=== PATIENT | female | born 1990 | race Caucasian/White ===

== ENCOUNTER 2017-06-23 15:10 | Emergency (ER) | payer OTHER ==
[2017-06-23 15:19] VITALS: TEMP 98.4; BMI 22.8
--- NOTE | 2017-06-23 15:21 | PDOC ---
Rapid Medical Evaluation Time Seen by Provider: 06/23/17 15:12 Medical Evaluation: Allergies Allergy/AdvReac Type Severity Reaction Status Date / Time No Known Allergies Allergy Verified 06/23/17 15:15 06/23/17 15:17 I have performed a brief in-person evaluation of this patient. The patient presents with a chief complaint of bright red blood per rectum since this am . Reports 2 episodes of blood in water of toilet when she went to urinate. States she noticed only bleeding with using the bathroom. Denies constipation or hemorrhoids. Denies anal intercourse Pertinent physical exam findings NAD lungs clear bilaterally heart s1s2 abdomen soft non tender I have ordered the following: urine hcg, urinalysis The patient will proceed to the ED for further evaluation. Discharge Disposition - Diagnosis Rectal bleeding - Discharge Dispostion Disposition: HOME Condition at time of disposition: Stable - Prescriptions Prescriptions: Hydrocortisone Acetate [Anusol Hc Suppository -] 25 mg RC DAILY #14 supp.rect - Referrals Referrals: Herman Stout MD [Staff Physician] - ON STAFF,NOT [Primary Care Provider] - - Patient Instructions Printed Discharge Instructions: DI for Rectal Bleeding Additional Instructions: 1. It is very important to followup on the xray results that you had that was done at a different facility. 2. Please call your doctor this week 3. Your labs do not show an anemia. If you have further rectal bleeding you may need to see a marine radio installer and servicer - Post Discharge Activity
[2017-06-23 16:32] LABS: URINE APPEARANCE SLCLOUDY; URINE BILIRUBIN NEGATIVE (NEGATIVE); URINE BLOOD NEGATIVE (NEGATIVE); URINE COLOR YELLOW; URINE GLUCOSE (UA) NEGATIVE (NEGATIVE); URINE KETONE NEGATIVE (NEGATIVE); URINE LEUK ESTERASE NEGATIVE (NEGATIVE); URINE NITRITE NEGATIVE (NEGATIVE); URINE PROTEIN NEGATIVE (NEGATIVE); URINE UROBILINOGEN NEGATIVE mg/dL (0.2-1.0)
[2017-06-23 16:46] LABS: HCG,QUALITATIVE URINE NEGATIVE
--- NOTE | 2017-06-23 16:50 | PDOC ---
History of Present Illness - General Chief Complaint: Bleeding from Anus Stated Complaint: RECTAL BLEEDING Time Seen by Provider: 06/23/17 15:12 History Source: Patient, Spouse Exam Limitations: Language Barrier - History of Present Illness Timing/Duration: 4-6 hours Severity: mild Modifying Factors: improves with: other (bowel mvmt) Associated Symptoms: reports: other (red blood in stool) Past History - Past Medical History Allergies/Adverse Reactions: Allergies Allergy/AdvReac Type Severity Reaction Status Date / Time No Known Allergies Allergy Verified 06/23/17 15:15 Home Medications: Ambulatory Orders NK [No Known Home Medication] 06/23/17 COPD: No Other medical history: DENIES. - Suicide/Smoking/Psychosocial Hx Smoking History: Never smoked Review of Systems - Review of Systems Able to Perform ROS?: Yes Is the patient limited Indonesian proficient: Yes Constitutional: No: Symptoms Reported, See HPI, Chills, Diaphoresis, Fever, Loss of Appetite, Malaise, Night Sweats, Weakness, Weight Stable, Unintentional Wgt. Loss, Unexplained wgt Loss, Other HEENTM: No: Symptoms Reported, See HPI, Eye Pain, Blurred Vision, Tearing, Recent change in vision, Double Vision, Cataracts, Ear Pain, Ocular Prothesis, Ear Discharge, Nose Pain, Nose Congestion, Tinnitus, Nose Bleeding, Hearing Loss , Throat Pain, Throat Swelling, Mouth Pain, Dental Problems, Difficulty Swallowing, Mouth Swelling, Other Respiratory: No: Symptoms reported, See HPI, Cough, Orthopnea, Shortness of Breath, SOB with Exertion, SOB at Rest, Stridor, Wheezing, Productive cough, Hemoptysis, Other Cardiac (ROS): No: Symptoms Reported, See HPI, Chest Pain, Edema, Irregular Heart Rate, Lightheadedness, Palpitations, Syncope, Chest Tightness, Other ABD/GI: Yes: Rectal Bleeding : No: Symptoms Reported, See HPI, Burning, Dysuria, Discharge, Frequency, Flank Pain, Hematuria, Incontinence, Pain, Urgency, Testicular Mass, Testicular Swelling, Lesions, Testicular Pain, Other Musculoskeletal: No: Symptoms Reported, See HPI, Back Pain, Gout, Joint Pain, Joint Swelling, Muscle Pain, Muscle Weakness, Neck Pain, Joint Stiffness, Other Integumentary: No: Symptoms Reported, See HPI, Bruising, Change in Color, Change in Hair/Nails, Dryness, Erythema, Flushing, Lesions, Lumps, Pallor, Pruritus, Rash, Sweating, Other Neurological: No: Symptoms reported, See HPI, Headache, Numbness, Paresthesia, Pre-Existing Deficit, Seizure, Tingling, Tremors, Weakness, Unsteady Gait, Ataxia, Dizziness, Other Endocrine: No: Symptoms Reported, See HPI, Excessive Sweating, Flushing, Intolerance to Cold, Intolerance to Heat, Increased Hunger, Increased Thirst, Increased Urine, Unexplained Weight Gain, Unexplained Weight Loss, Change in Weight, Other *Physical Exam - Vital Signs Last Vital Signs Temp Pulse Resp BP Pulse Ox 98.4 F 85 18 140/95 100 06/23/17 15:15 06/23/17 15:15 06/23/17 15:15 06/23/17 15:15 06/23/17 15:15 - Physical Exam General Appearance: Yes: Nourished, Appropriately Dressed HEENT: positive: Normal Voice Neck: positive: Supple Respiratory/Chest: positive: Lungs Clear Cardiovascular: positive: Regular Rhythm, Regular Rate Vascular Pulses: Carotid (R): 2+, Carotid (L): 2+ Gastrointestinal/Abdominal: positive: Normal Bowel Sounds, Flat Rectal Exam: positive: normal rectal tone, heme positive stool Extremity: positive: Normal Capillary Refill, Normal Range of Motion Integumentary: positive: Other (left forearm ppd _ induration, 1 cm ) Neurologic: positive: Fully Oriented, Alert ED Treatment Course - LABORATORY CBC & Chemistry Diagram: 06/23/17 17:04 06/23/17 17:04 - ADDITIONAL ORDERS Additional order review: Laboratory Results 06/23/17 15:40 Urine HCG, Qual Negative Medical Decision Making - Medical Decision Making 06/23/17 17:17 Incidenatally while examining the pt I found her recent ppd was positive she knows this and had a cxr earlier today =is following up with her PCP this week =pt given respiratory mask and kept in her room *DC/Admit/Observation/Transfer Diagnosis at time of Disposition: Rectal bleeding - Discharge Dispostion Disposition: HOME Condition at time of disposition: Stable - Referrals Referrals: ON STAFF,NOT [Primary Care Provider] - Herman Stout MD [Staff Physician] - - Patient Instructions Printed Discharge Instructions: DI for Rectal Bleeding Additional Instructions: 1. It is very important to followup on the xray results that you had that was done at a different facility. 2. Please call your doctor this week 3. Your labs do not show an anemia. If you have further rectal bleeding you may need to see a isotope technician - Post Discharge Activity
[2017-06-23 17:47] LABS: BASO % 0.3 % (0-2.0); EOS % 1.4 % (0-4.5); HEMATOCRIT 38.2 % (32.4-45.2); HEMOGLOBIN 13.3 GM/dL (10.7-15.3); LYMPH % 32.7 % (8-40); MCH 31.3 pg (25.7-33.7); MCHC 34.9 g/dl (32.0-36.0); MEAN CELL VOLUME 89.8 fl (80-96); MEAN PLT VOLUME 8.6 fl (7.5-11.1); MONO % 8.1 % (3.8-10.2); NEUT % 57.5 % (42.8-82.8); PLATELET COUNT 258 K/MM3 (134-434); RBC 4.25 M/mm3 (3.60-5.2); RDW 13.8 % (11.6-15.6); WHITE BLOOD COUNT 8.3 K/mm3 (4.0-10.0)
[2017-06-23 18:27] LABS: ALBUMIN 3.8 g/dl (3.4-5.0); ANION GAP 9 (8-16); BLOOD UREA NITROGEN 11 mg/dL (7-18); CALCIUM 8.4 mg/dL (8.5-10.1); CHLORIDE 104 mmol/L (98-107); CO2 24 mmol/L (21-32); CREATININE 0.8 mg/dL (0.55-1.02); GLUCOSE,RANDOM 96 mg/dL (74-106); POTASSIUM 4.1 mmol/L (3.5-5.1); SGOT/AST 19 U/L (15-37); SGPT/ALT 26 U/L (12-78); SODIUM 137 mmol/L (136-145)
[2017-06-23 18:30] LABS: ALK PHOS 79 U/L (45-117); BILIRUBIN,TOTAL 0.4 mg/dL (0.2-1.0); TOT PROT 7.7 g/dl (6.4-8.2)
[2017-06-23 18:41] VITALS: BP 132/78; PULSE 75
== END 2017-06-23 18:41 | disposition home or self-care (01) ==
LOC: JER 15:10
DX: K62.5 Hemorrhage of anus and rectum (principal)
CPT/HCPCS: 36415; 80053; 81003; 82272; 84703; 85025; 99283-25

== ENCOUNTER 2017-10-03 19:41 | Emergency (ER) | payer OTHER ==
--- NOTE | 2017-10-03 19:46 | PDOC ---
Rapid Medical Evaluation Time Seen by Provider: 10/03/17 19:44 Medical Evaluation: Allergies Allergy/AdvReac Type Severity Reaction Status Date / Time No Known Allergies Allergy Verified 09/29/17 20:43 10/03/17 19:44 I have performed a brief in-person evaluation of this patient. The patient presents with a chief complaint of: cough Pertinent physical exam findings: Lungs CTAB I have ordered the following: upt The patient will proceed to the ED for further evaluation. Discharge Disposition - Diagnosis Cough - Referrals - Patient Instructions - Post Discharge Activity
[2017-10-03 19:50] VITALS: BP 118/41; PULSE 87; TEMP 98.1; BMI 22.3
--- NOTE | 2017-10-03 20:55 | PDOC ---
History of Present Illness - General Chief Complaint: Respiratory Stated Complaint: COUGH Time Seen by Provider: 10/03/17 19:44 History Source: Patient, Parent(s) Exam Limitations: No Limitations - History of Present Illness Initial Comments: 10/03/17 20:56 Patient here third visit in past 3 days for persistent cough and diagnosis of past to provide us with ALLERGIC rhinitis. has been using Claritin/ Zyrtec D, and Robitussin with minimal resolved, physician today treated her with follow-up albuterol pump and a shot but states has continued to worsen. Discussed with private Physician later this afternoon who recommended coming to the emergency department for further evaluation. Patient denies fever, purulent phlegm production, headache pain. States has not had much resolved with medication she is used thus far. 10/03/17 20:57 Timing/Duration: reports: getting worse Severity: reports: mild, moderate Associated Symptoms: reports: cough, facial pain, nasal congestion, nasal drainage. denies: earache, headache, sore throat Past History - Travel Traveled outside of the country in the last 30 days: No Close contact w/someone who was outside of country & ill: No - Past Medical History Allergies/Adverse Reactions: Allergies Allergy/AdvReac Type Severity Reaction Status Date / Time No Known Allergies Allergy Verified 10/03/17 19:46 Home Medications: Ambulatory Orders Budesonide [Rhinocort Allergy] 1 spray NS ONCE #1 spray.pump 09/29/17 Cetirizine HCl/Pseudoephedrine [Zyrtec-D Tablet] 1 each PO DAILY #30 tab.er.12h 09/29/17 Guaifenesin [Robitussin] 5 ml PO HS #30 ml 09/29/17 Albuterol Sulfate Inhaler - [Ventolin HFA Inhaler -] 1 - 2 inh PO Q4H #1 inhaler 10/03/17 predniSONE [Deltasone -] 20 mg PO BID #8 tablet 10/03/17 COPD: No - Suicide/Smoking/Psychosocial Hx Smoking History: Never smoked Have you smoked in the past 12 months: No Hx Alcohol Use: No Drug/Substance Use Hx: No Substance Use Type: None Review of Systems - Review of Systems Able to Perform ROS?: Yes Is the patient limited Yoruba proficient: Yes Constitutional: Yes: Symptoms Reported, See HPI, Malaise HEENTM: Yes: Symptoms Reported, See HPI Respiratory: Yes: Symptoms reported, See HPI, Cough, Shortness of Breath, Wheezing. No: Productive cough (frequent and significant cough without production or phlegm) Integumentary: Yes: Symptoms Reported, See HPI Neurological: Yes: See HPI. No: Symptoms reported All Other Systems: Reviewed and Negative *Physical Exam - Vital Signs Last Vital Signs Temp Pulse Resp BP Pulse Ox 98.1 F 87 18 118/41 97 10/03/17 19:46 10/03/17 19:46 10/03/17 19:46 10/03/17 19:46 10/03/17 19:46 - Physical Exam General Appearance: Yes: Nourished, Appropriately Dressed, Mild Distress HEENT: positive: JOURDAN, Normal ENT Inspection, TMs Normal, Pharynx Normal, Rhinorrhea Neck: positive: Supple. negative: Tender, Lymphadenopathy (R), Lymphadenopathy (L) Respiratory/Chest: positive: Lungs Clear, Normal Breath Sounds, Other (but has frequent nonproductive cough.). negative: Chest Tender, Respiratory Distress, Rhonchi, Stridor, Wheezing Gastrointestinal/Abdominal: positive: Normal Bowel Sounds, Soft. 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 Patient's was able to obtain information the patient received Depo Medrol injection today and inhaler. Received call from Dr. Monreal, radiologist who notes a small density in right upper lobe with questionable nodularity. Recommends CAT scan. Discussed with patient and understands need and will obtain CT of chest 10/03/17 21:41 10/03/17 23:05 Return from CAT scan, has persistent cough, and given Tylenol No. 3 one tablet for codeine suppression. and patient understand will need to wait for official report of CT. Turnover given to Gina Butts NP for remainder of evaluation and disposition *DC/Admit/Observation/Transfer Diagnosis at time of Disposition: Cough - Discharge Dispostion Condition at time of disposition: Stable - Referrals Referrals: ON STAFF,NOT [Primary Care Provider] - Gabriel Blue MD, MD [Staff Physician] - - Patient Instructions Additional Instructions: Rest, drink lots of fluids: Teas, water, soups, Pedialyte Saltwater gargles Steamy showers/seem to face break up mucus Avoid contact with others until fevers and cough resolved Lots of handwashing and good hygiene Continue [id number] medications for symptomatic relief Tylenol or Motrin for fever and pain Continue albuterol nebulizers every 4-6 hours for the next 2 days then as needed for continued cough Prednisone as directed until completed Followup with private physician in one to 2 days Return to emergency department / pediatric hospital for worsened symptoms, fevers, dehydration - Post Discharge Activity Forms/Work/School Notes: Back to Work
[2017-10-03 22:03] LABS: BASO % 0.3 % (0-2.0); EOS % 6.6 % (0-4.5); HEMATOCRIT 38.9 % (32.4-45.2); HEMOGLOBIN 13.3 GM/dL (10.7-15.3); LYMPH % 16.9 % (8-40); MCH 30.8 pg (25.7-33.7); MCHC 34.1 g/dl (32.0-36.0); MEAN CELL VOLUME 90.4 fl (80-96); MEAN PLT VOLUME 8.3 fl (7.5-11.1); MONO % 4.6 % (3.8-10.2); NEUT % 71.6 % (42.8-82.8); PLATELET COUNT 271 K/MM3 (134-434); RDW 13.1 % (11.6-15.6); WHITE BLOOD COUNT 10.9 K/mm3 (4.0-10.0)
[2017-10-03 22:30] LABS: ALBUMIN 3.9 g/dl (3.4-5.0); ANION GAP 6 (8-16); BLOOD UREA NITROGEN 12 mg/dL (7-18); CALCIUM 8.7 mg/dL (8.5-10.1); CHLORIDE 104 mmol/L (98-107); CO2 28 mmol/L (21-32); CREATININE 0.9 mg/dL (0.55-1.02); GLUCOSE,RANDOM 97 mg/dL (74-106); POTASSIUM 3.8 mmol/L (3.5-5.1); SGOT/AST 26 U/L (15-37); SGPT/ALT 38 U/L (12-78); SODIUM 138 mmol/L (136-145)
[2017-10-03 22:32] LABS: ALK PHOS 76 U/L (45-117); BILIRUBIN,TOTAL 0.6 mg/dL (0.2-1.0); TOT PROT 8.2 g/dl (6.4-8.2)
[2017-10-03] MEDS ORDERED: ACETAMINOPHEN WITH CODEINE 300MG/30MG TABLET ONE (23:02)
[2017-10-03] MEDS ORDERED: ACETAMINOPHEN WITH CODEINE 300MG/30MG TABLET PO STA (23:04)
--- NOTE | 2017-10-03 23:53 | PDOC ---
*Physical Exam - Vital Signs Last Vital Signs Temp Pulse Resp BP Pulse Ox 98.1 F 87 18 118/41 97 10/03/17 19:46 10/03/17 19:46 10/03/17 19:46 10/03/17 19:46 10/03/17 19:46 ED Treatment Course - LABORATORY CBC & Chemistry Diagram: 10/03/17 21:45 10/03/17 21:45 - ADDITIONAL ORDERS Additional order review: Laboratory Results 10/03/17 10/03/17 21:45 20:00 Sodium 138 Potassium 3.8 Chloride 104 Carbon Dioxide 28 Anion Gap 6 L BUN 12 Creatinine 0.9 Creat Clearance w eGFR > 60 Random Glucose 97 Calcium 8.7 Total Bilirubin 0.6 D AST 26 ALT 38 Alkaline Phosphatase 76 Total Protein 8.2 Albumin 3.9 Urine HCG, Qual Negative 10/03/17 21:45 RBC 4.30 MCV 90.4 MCHC 34.1 RDW 13.1 MPV 8.3 Neutrophils % 71.6 D Lymphocytes % 16.9 D Monocytes % 4.6 Eosinophils % 6.6 H D Basophils % 0.3 - Medications Given in the ED: ED Medications Discontinued Medications Generic Name Dose Route Start Last Admin Trade Name Freq PRN Reason Stop Dose Admin Acetaminophen/Codeine Phosphate 1 tab 10/03/17 23:04 10/03/17 23:15 Tylenol # 3 - PO 10/03/17 23:05 1 tab ONCE STA Administration Progress Note - Progress Note Progress Note: Sign out received from MINDY Kim. Summary of ED course- CXR Pertinent studies/lab/EKG/consults- ct results pending Meds given- T3 Anticipated plan/disposition- pending CT results Medical Decision Making - Medical Decision Making 10/03/17 23:50 Received signoff from MINDY Kim. 27-year-old woman with 3 weeks of chronic cough. Read of the chest x-ray revealed a right below nodule with recommendation for CAT scan. CT scan is read by Dr. Brizuela: No pulmonary nodule or infiltrate is identified. Slightly prominent nonspecific bilateral hilar lymph nodes are noted-? Incidental hyperplastic lymph nodes. Correlation with three-month follow-up MRI or contrast enhanced CT suggested to evaluate stability/resolution. Patient received Tylenol #3 mutely prior to sign out to help the patient with her cough. At present patient states she is no longer coughing and states is the first time just felt relaxin the past 2 weeks. I will discharge the patient home with PMD follow-up of CT findings. Findings of the CAT scan have been discussed with the patient understands the need to follow-up in 3 months to have further imaging done to reevaluate. *DC/Admit/Observation/Transfer Diagnosis at time of Disposition: Cough - Discharge Dispostion Disposition: HOME Condition at time of disposition: Stable Decision to Admit order: No - Prescriptions Prescriptions: Albuterol Sulfate Inhaler - [Ventolin HFA Inhaler -] 1 - 2 inh PO Q4H #1 inhaler Codeine Sulfate 30 mg PO QID PRN #8 tablet MDD 4 PRN Reason: Cough predniSONE [Deltasone -] 20 mg PO BID #8 tablet - Referrals Referrals: ON STAFF,NOT [Primary Care Provider] - Gabriel Blue MD, MD [Staff Physician] - - Patient Instructions Additional Instructions: Rest, drink lots of fluids: Teas, water, soups, Pedialyte Saltwater gargles Steamy showers/seem to face break up mucus Avoid contact with others until fevers and cough resolved Lots of handwashing and good hygiene Continue gyxh-ldk-bguzbey medications for symptomatic relief Tylenol or Motrin for fever and pain Continue albuterol nebulizers every 4-6 hours for the next 2 days then as needed for continued cough Prednisone as directed until completed Followup with private physician in one to 2 days Return to emergency department / pediatric hospital for worsened symptoms, fevers, dehydration - Post Discharge Activity Forms/Work/School Notes: Back to Work
== END 2017-10-04 00:52 | disposition home or self-care (01) ==
LOC: JER 19:41
DX: R05 Cough (principal)
CPT/HCPCS: 36415; 71046-TC-FY; 71260-TC; 80053; 84703; 85025; 99281-25

== ENCOUNTER 2018-02-10 19:32 | Emergency (ER) | payer OTHER ==
[2018-02-10 19:41] VITALS: BP 115/71; PULSE 16; TEMP 98.1; BMI 20.2
--- NOTE | 2018-02-10 20:35 | PDOC ---
Rapid Medical Evaluation Chief Complaint: Non EmpBld/Body Flud Exposure Time Seen by Provider: 02/10/18 20:33 Medical Evaluation: Allergies Allergy/AdvReac Type Severity Reaction Status Date / Time No Known Allergies Allergy Verified 02/10/18 19:41 Vital Signs Temp Pulse Resp BP Pulse Ox 98.1 F 16 L 67 H 115/71 100 02/10/18 19:39 02/10/18 19:39 02/10/18 19:39 02/10/18 19:39 02/10/18 19:39 02/10/18 20:33 I have performed a brief in-person evaluation of this patient. The patient presents with a chief complaint of: needle stick at work. report review of patient chart shows no STIs Pertinent physical exam findings: A&O x 3 I have ordered the following: blood exposure labs The patient will proceed to the ED for further evaluation. Discharge Disposition - Diagnosis Needlestick injury of finger - Referrals - Patient Instructions
[2018-02-10 21:02] LABS: BASO % 0.3 % (0-2.0); EOS % 2.5 % (0-4.5); HEMATOCRIT 41.7 % (32.4-45.2); LYMPH % 37.2 % (8-40); MCH 30.6 pg (25.7-33.7); MCHC 33.7 g/dl (32.0-36.0); MEAN CELL VOLUME 90.9 fl (80-96); MONO % 6.5 % (3.8-10.2); NEUT % 53.5 % (42.8-82.8); PLATELET COUNT 297 K/MM3 (134-434); RBC 4.59 M/mm3 (3.60-5.2); RDW 12.9 % (11.6-15.6); WHITE BLOOD COUNT 8.6 K/mm3 (4.0-10.0)
--- NOTE | 2018-02-10 21:11 | PDOC ---
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 She was stuck on the right second finger radial aspect on the skin overlying the distal phalanx with a bloody needle. 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 She states she reviewed the chart of the patient who had no known history of hepatitis or HIV she is here before for phylactic treatment. Should her HIV test be negative she was requesting prophylaxis. She is current on tetanus. Past History - Past Medical History Allergies/Adverse Reactions: Allergies Allergy/AdvReac Type Severity Reaction Status Date / Time No Known Allergies Allergy Verified 02/10/18 19:41 Home Medications: Ambulatory Orders NK [No Known Home Medication] 02/10/18 COPD: No - Suicide/Smoking/Psychosocial Hx Smoking History: Never smoked Have you smoked in the past 12 months: No Information on smoking cessation initiated: No Hx Alcohol Use: No Drug/Substance Use Hx: No Substance Use Type: None Review of Systems - Review of Systems All Other Systems: Reviewed and Negative *Physical Exam - Vital Signs Last Vital Signs Temp Pulse Resp BP Pulse Ox 98.1 F 16 L 67 H 115/71 100 02/10/18 19:39 02/10/18 19:39 02/10/18 19:39 02/10/18 19:39 02/10/18 19:39 - Physical Exam Comments: HEAD: NC/AT EYES: Conjuntiva clear Ears: Canals and TM's normal NOSE: No d/c THROAT: Moist mucous membrances, oral pharanx clear, uvula midline NECK: Supple without adenopathy CARDIAC: S1 S2 LUNGS: CTA Full and Equal breath sounds ABDOMEN: Soft NT ND MS: Full ROM in all joints without edema NEUROLOGIC: No gross sensory or motor deficits, NVID SKIN: Normal color and temperature no lesions or rashes 02/10/18 21:11 ED Treatment Course - LABORATORY CBC & Chemistry Diagram: 02/10/18 20:40 02/10/18 20:40 - ADDITIONAL ORDERS Additional order review: 02/10/18 20:40 RBC 4.59 MCV 90.9 MCHC 33.7 RDW 12.9 MPV 8.0 Neutrophils % 53.5 D Lymphocytes % 37.2 D Monocytes % 6.5 Eosinophils % 2.5 Basophils % 0.3 *DC/Admit/Observation/Transfer Diagnosis at time of Disposition: Needlestick injury of finger - Discharge Dispostion Disposition: HOME Condition at time of disposition: Stable Decision to Admit order: No - Referrals Referrals: Brock White NP [Nurse Practitioner] - Shannon Thomas NP [Nurse Practitioner] - Sloane Maddox MD [Staff Physician] - Lesley Mckinnon NP [Nurse Practitioner] - - Patient Instructions Printed Discharge Instructions: How to Handle Body Fluid Exposure -- Healthcare Worker Additional Instructions: Your HIV test was negative. You are given a kit for HIV postexposure prophylaxis. Please take the medication as directed. You must follow-up with the [facility] for continuation of your treatment. You only given half the dose. Return to the emergency room should you have any other issues. Follow-up with her primary care provider as well. He should follow-up within the next 2-3 days. Take medication as directed. - Post Discharge Activity Forms/Work/School Notes: Back to Work
[2018-02-10 21:39] LABS: ALBUMIN 4.2 g/dl (3.4-5.0); ALK PHOS 81 U/L (45-117); ANION GAP 5 MMOL/L (8-16); BILIRUBIN,TOTAL 0.6 mg/dL (0.2-1); BLOOD UREA NITROGEN 10 mg/dL (7-18); CALCIUM 8.8 mg/dL (8.5-10.1); CHLORIDE 105 mmol/L (98-107); CHOLESTEROL 162 mg/dL (50-200); CO2 27 mmol/L (21-32); CREATININE 0.6 mg/dL (0.55-1.3); GAMMA GLUTAMYL TRANSPEPTIDASE 15 U/L (5-85); GLUCOSE,RANDOM 83 mg/dL (74-106); LDH 208 U/L (84-246); PHOSPHOROUS 3.6 mg/dL (2.5-4.9); POTASSIUM 3.8 mmol/L (3.5-5.1); SGOT/AST 35 U/L (15-37); SGPT/ALT 35 U/L (13-61); SODIUM 137 mmol/L (136-145); TOT PROT 8.2 g/dl (6.4-8.2); TRIGLYCERIDES 53 mg/dL (0-150)
[2018-02-10] MEDS ORDERED: HIV POST EXPOSURE PROPHYLAXIS KIT NR ONE (22:26)
[2018-02-10] MEDS ORDERED: HIV POST EXPOSURE PROPHYLAXIS KIT PO ONE (22:33)
[2018-02-12 17:38] LABS: HBsAG SCREEN Negative (Negative)
[2018-02-13 06:06] LABS: HEP.C VIRUS AB <0.1 s/co ratio (0.0-0.9)
== END 2018-02-10 22:46 | disposition home or self-care (01) ==
LOC: JERFT 19:32
DX: Z77.21 Contact with and (suspected) exposure to potentially hazardous body fluids (principal); S61.230A Puncture wound without foreign body of right index finger without damage to nail, initial encounter; W46.1XXA Contact with contaminated hypodermic needle, initial encounter; Y93.89 Activity, other specified; Y92.531 Health care provider office as the place of occurrence of the external cause; Y99.0 Civilian activity done for income or pay
CPT/HCPCS: 36415; 80053; 80074; 82465; 82977; 83615; 84100; 84478; 84550; 85025; 86317; 86706; 86803; 87340; 87389; 99281-25